=== PATIENT | male | born 1935 | race Caucasian/White ===

== ENCOUNTER → 2016-09-15 | Outpatient (CLI) | payer MEDICARE ==
[2016-09-15 10:26] LABS: AUTOMATED NEUTROPHIL # 5.2 TH/MM3 (1.8-7.7); BASOPHIL % 0.2 % (0.0-2.0); EOSINOPHIL # 0.1 TH/MM3 (0-0.4); EOSINOPHIL % 2.1 % (0.0-4.0); HEMATOCRIT 39.7 % (39.0-51.0); HEMO FLAGS DIFF FINAL; LYMPHOCYTE # 0.9 TH/MM3 (1.0-4.8); MEAN CELL VOLUME 82.5 FL (80.0-100.0); MEAN CORPUSCULAR HEMOGLOBIN 25.6 PG (27.0-34.0); MONO % 8.5 % (0.0-8.0); NEUT % 76.2 % (16.0-70.0); PLATELET COUNT 171 TH/MM3 (150-450); RED BLOOD COUNT 4.81 MIL/MM3 (4.50-5.90); RED CELL DISTRIBUTION WIDTH 16.1 % (11.6-17.2); WHITE BLOOD COUNT 6.8 TH/MM3 (4.0-11.0)
[2016-09-15 12:28] LABS: BLOOD, URINE NEG (NEG); COMMENT (UR) CULT NOT INDICATED; CULTURE IF INDICATED CULT NOT INDICATED; GLUCOSE,URINE NEG (NEG); KETONE, URINE NEG (NEG); MUCUS URINE FEW /lpf (OCC); NITRITE,URINE NEG (NEG); SQUAMOUS EPITHELIAL CELL URINE <1 /hpf (0-5); URINE COLOR YELLOW (YELLW/STRAW)
[2016-09-15 12:56] LABS: ALKALINE PHOSPHATASE 92 U/L (45-117); ALT (GPT) 24 U/L (12-78); ANION GAP 7 MEQ/L (5-15); AST (GOT) 26 U/L (15-37); BICARBONATE 28.2 MEQ/L (21.0-32.0); BLOOD UREA NITROGEN 16 MG/DL (7-18); CHLORIDE 104 MEQ/L (98-107); CREATINE KINASE 215 U/L (39-308); GLOMERULAR FILTRATION RATE 60 ML/MIN (>89); HDL CHOLESTEROL 45.7 MG/DL (40.0-60.0); LDL CHOLESTEROL 81 MG/DL (0-99); POTASSIUM 3.9 MEQ/L (3.5-5.1); SODIUM (NA) 139 MEQ/L (136-145); TOTAL BILIRUBIN ADULT 0.6 MG/DL (0.2-1.0); URIC ACID 6.3 MG/DL (2.6-7.2)
[2016-09-15 16:23] LABS: HEMOGLOBIN A1a 1.2 %; HEMOGLOBIN A1b 0.9 %; HEMOGLOBIN Ao 84.6 %; HEMOGLOBIN LA1C 1.9 %; HEMOGLOBIN P3 3.8 %
== END ==
LOC: OLAB 09:25
PROVIDERS: ATTEND Internal Medicine
DX: E78.5 Hyperlipidemia, unspecified (principal); I10 Essential (primary) hypertension; E03.9 Hypothyroidism, unspecified; I50.9 Heart failure, unspecified; M10.9 Gout, unspecified; Z79.899 Other long term (current) drug therapy; Z12.11 Encounter for screening for malignant neoplasm of colon
CPT/HCPCS: 36415; 80053; 80061; 81001; 82550; 83036; 84443; 84550; 85025

== ENCOUNTER → 2016-09-21 | Outpatient (CLI) | payer MEDICARE | LOC: OLAB 10:51 | PROVIDERS: ATTEND Internal Medicine | DX: E78.5 Hyperlipidemia, unspecified (principal); I10 Essential (primary) hypertension; E03.9 Hypothyroidism, unspecified; I50.9 Heart failure, unspecified; M10.9 Gout, unspecified; Z79.899 Other long term (current) drug therapy; Z12.11 Encounter for screening for malignant neoplasm of colon | CPT/HCPCS: 82272 ==

== ENCOUNTER → 2016-10-12 | Outpatient (CLI) | payer MEDICARE ==
[2016-10-12 12:58] LABS: ANION GAP 10 MEQ/L (5-15); BICARBONATE 27.4 MEQ/L (21.0-32.0); BLOOD UREA NITROGEN 33 MG/DL (7-18); CHLORIDE 104 MEQ/L (98-107); GLOMERULAR FILTRATION RATE 40 ML/MIN (>89); GLUCOSE,FASTING 78 MG/DL (74-99); POTASSIUM 4.4 MEQ/L (3.5-5.1); SODIUM (NA) 141 MEQ/L (136-145)
[2016-10-12 13:10] LABS: FREE T4 1.54 NG/DL (0.76-1.46)
[2016-10-16 11:22] LABS: ALKALINE PHOSPHATASE 69 U/L (45-117); ALT (GPT) 31 U/L (12-78); AST (GOT) 41 U/L (15-37); TOTAL BILIRUBIN ADULT 0.8 MG/DL (0.2-1.0)
== END ==
LOC: OLAB 10:45
PROVIDERS: ATTEND Internal Medicine Cardiovascular Disease
DX: I48.91 Unspecified atrial fibrillation (principal); E03.9 Hypothyroidism, unspecified
CPT/HCPCS: 36415; 80048; 80053; 84439; 84443

== ENCOUNTER → 2016-10-16 | Outpatient (CLI) | payer MEDICARE ==
[2016-10-16 13:20] LABS: URINE TOTAL PROTEIN TIMED 30.6 MG/DL
== END ==
LOC: OLAB 10-14 07:42
PROVIDERS: ATTEND Internal Medicine
DX: I10 Essential (primary) hypertension (principal); Z79.899 Other long term (current) drug therapy
CPT/HCPCS: 84157

== ENCOUNTER → 2016-10-19 | Outpatient (CLI) | payer MEDICARE ==
[2016-10-19 13:06] LABS: BICARBONATE 29.2 MEQ/L (21.0-32.0); POTASSIUM 3.7 MEQ/L (3.5-5.1)
== END ==
LOC: OLAB 09:31
PROVIDERS: ATTEND Urology
DX: C61 Malignant neoplasm of prostate (principal); N17.9 Acute kidney failure, unspecified
CPT/HCPCS: 36415; 80048; 81001; 84153

== ENCOUNTER → 2016-11-17 | Outpatient (CLI) | payer MEDICARE | LOC: OLAB 09:11 | PROVIDERS: ATTEND Urology | DX: C61 Malignant neoplasm of prostate (principal) | CPT/HCPCS: 36415; 84153 ==

== ENCOUNTER → 2017-01-12 | Day surgery (SDC) | payer MEDICARE ==
[~2017-01-12] MED LIST: GENTAMICIN SULFATE 80 MG/2 ML VIAL ONE; IOHEXOL 180 MG/ML 20 ML VIAL (for RAD DIAG) ONE; LACTATED RINGER'S 1,000 ML BAG IV ONE; ONDANSETRON HCL 4 MG/2 ML VIAL IV PUSH ONE; PROPOFOL 200 MG/20 ML AMP IV ONE; SODIUM CHLORIDE 0.9% INJ 10 ML ONE; SODIUM CHLORIDE 0.9% SOLN 100 ML (PAB) BAG IV ONE
--- NOTE | 2017-01-12 16:30 | TN ---
cc: JESÚS KUMAR M.D. DATE OF SURGERY 01/12/2017 PREOPERATIVE DIAGNOSIS Left ureteral obstruction (ICD - 10 code Q62.39). POSTOPERATIVE DIAGNOSIS Left ureteral obstruction (ICD - 10 code Q62.39). PROCEDURE 1. Cystourethroscopy with left ureteroscopy (CPT code 05039). 2. Cystourethroscopy with left retrograde pyelogram and left ureteral stent placement (6-Norwegian x 24 cm) (CPT code 55420). INDICATION Mr. Seymour is an 81-year-old gentleman with castrate resistant widely metastatic prostate cancer who recently, as part of a metastatic survey was found to have an obstructing left ureter with no obvious lesion or stone, presents now for further evaluation and stent placement. FINDINGS Normal urethra. The prostatic urethra is absent. Bladder neck is within normal limits and postsurgical. The ureteral orifice on the left is slit-like, normal size, shape and position. No evidence of any efflux of urine. On the right the ureteral orifice appears to be within a Hutch diverticulum. There is moderate trabeculation especially in the dome of the bladder with some small diverticula additionally. No carmine tumors, calcifications or suspicious mucosa identified. The retrograde pyelogram shows evidence of pelvocaliectasis in a dilated ureter and tortuosity down to the pelvis where it tapers abruptly into a very narrow distal ureter. Ureteroscopy can only be performed in the distal ureter at the junction of the mid ureter there is extrinsic compression and inability to pass the scope further. PROCEDURE Procedure as well as risks and benefits were explained to the patient. Informed consent was obtained. The patient was taken to the major operative theater and placed supine position. The patient was identified as well as the operative site. [place] time-out was performed in standard fashion. At this time general anesthetic and prophylactic intravenous antibiotics consisting of gentamicin 80 mg was administered. After adequate anesthetic the patient was placed in the low dorsolithotomy position, prepped and draped in the usual sterile fashion. At this time a 22.5 Norwegian cystoscope with a 30 lens was inserted in the urethra and bladder with the above findings. Attention was directed to the left ureteral orifice where an 8-Norwegian cone-tipped catheter was inserted in the working end of the scope and the ureteral meatus was cannulated. Under fluoroscopic guidance dilute radiopaque contrast was injected with some difficulty opacifying parts of the collecting system and the cone-tip catheter was exchanged for an open-ended catheter which was then placed at the level of the obstruction. Then essentially the catheter was advanced all the way up into the renal pelvis and pullback retrograde pyelogram was performed with the above findings. At this time a 0.035 inch hybrid wire was placed through the working end of the scope up the ureter under fluoroscopic and able to easily traverse the torturous ureter and into the renal pelvis and over this a 6-Norwegian x 24 cm double-J ureteral stent was placed with the help of a pusher. When the proximal end could be seen under fluoroscopic guidance in the renal pelvis, the pusher and guidewire were removed. There was a nice curl within the renal pelvis and a nice curl in the bladder under direct vision. The bladder was then decompressed, the cystoscope removed. The patient tolerated procedure well, emerged from anesthetic without difficulty and transferred to the recovery in stable condition to be discharged home when criteria is met. It appears the patient has metastatic prostate cancer is causing some lymphadenopathy and extrinsic compression on that portion of the left mid and distal ureter. MD MARYELLEN Brewer/CARLYLE /3:35 PM /4:04 PM
== END | disposition home or self-care (01) ==
LOC: ESDC 12:03
PROVIDERS: ATTEND Urology
DX: Q62.39 Other obstructive defects of renal pelvis and ureter (principal)
CPT/HCPCS: 00910; 52332; 52351; 76000; C1769; J1580; J2405; J3010; J7120; Q9965

== ENCOUNTER → 2017-01-18 | Outpatient (CLI) | payer MEDICARE ==
[2017-01-18 12:41] LABS: ANION GAP 6 MEQ/L (5-15); AST (GOT) 26 U/L (15-37); BICARBONATE 29.8 MEQ/L (21.0-32.0); BLOOD UREA NITROGEN 23 MG/DL (7-18); CHLORIDE 99 MEQ/L (98-107); GLOMERULAR FILTRATION RATE 37 ML/MIN (>89); GLUCOSE,FASTING 75 MG/DL (74-99); POTASSIUM 4.2 MEQ/L (3.5-5.1); SODIUM (NA) 135 MEQ/L (136-145)
[2017-01-18 12:51] LABS: ALKALINE PHOSPHATASE 159 U/L (45-117); ALT (GPT) 23 U/L (12-78); FREE T4 1.49 NG/DL (0.76-1.46); HDL CHOLESTEROL 51.9 MG/DL (40.0-60.0); LDL CHOLESTEROL 79 MG/DL (0-99); TOTAL BILIRUBIN ADULT 0.7 MG/DL (0.2-1.0)
[2017-01-18 13:27] LABS: BACTERIA, URINE RARE /hpf; BLOOD, URINE LARGE (NEG); GLUCOSE,URINE NEG (NEG); KETONE, URINE NEG (NEG); MUCUS URINE FEW /lpf (OCC); NITRITE,URINE NEG (NEG); PH, URINE 6.5 (5.0-8.5); SQUAMOUS EPITHELIAL CELL URINE <1 /hpf (0-5); URINE COLOR YELLOW (YELLW/STRAW)
== END ==
LOC: OLAB 07:53
PROVIDERS: ATTEND Internal Medicine
DX: E03.9 Hypothyroidism, unspecified (principal); E78.5 Hyperlipidemia, unspecified; Z79.899 Other long term (current) drug therapy
CPT/HCPCS: 36415; 80053; 80061; 81001; 84439; 84443

== ENCOUNTER → 2017-04-06 | Day surgery (SDC) | payer MEDICARE ==
[~2017-04-06] MED LIST changes: -IOHEXOL 180 MG/ML 20 ML VIAL (for RAD DIAG) ONE; -LACTATED RINGER'S 1,000 ML BAG IV ONE; +LACTATED RINGER'S 1000 ML INJ 1,000 ML ONE; -SODIUM CHLORIDE 0.9% INJ 10 ML ONE; +SODIUM CHLORIDE 0.9% INJ 100 ML IV ONE; -SODIUM CHLORIDE 0.9% SOLN 100 ML (PAB) BAG IV ONE
--- NOTE | 2017-04-06 17:07 | TN ---
cc: JESÚS KUMAR M.D. DATE OF SURGERY 04/06/2017 PREOPERATIVE DIAGNOSES 1. Left ureteral obstruction (ICD - 10 code Q62.39). 2. Metastatic prostate cancer (ICD - 10 code C61). POSTOPERATIVE DIAGNOSES 1. Left ureteral obstruction (ICD - 10 code Q62.39). 2. Metastatic prostate cancer (ICD - 10 code C61). PROCEDURE 1. Cystourethroscopy with left ureteroscopy (CPT code 73887) 2. Cystourethroscopy with left ureteral stent placement (6-Polish x 22 cm) (CPT code 94442) INDICATION Mr. Seymour is an 81-year-old gentleman with castrate resistant widely metastatic prostate cancer who previously was found to have obstruction of his left ureter, presumably due to the cancer and presents now for stent exchange and possible ureteroscopy. FINDINGS Normal urethra. The prostatic urethra is absent. The bladder neck is within normal limits and postsurgical. Ureteral orifice is normal size, shape and position effluxing clear urine on the right. On the left there is a distal end of a double-J ureteral stent emerging. On the right the ureteral orifice appears to be within a hutch diverticulum. There is some moderate trabeculation especially in the dome of the bladder with some small diverticuli additionally. No carmine tumors, abnormal mucosa or calcifications identified. The left ureter appears to be patent to the level of the mid ureter and then abruptly tapers down and extrinsically compressed, unable to place the scope further. PROCEDURE IN DETAIL Procedure as well as risks and benefits were explained to the patient and informed consent was obtained. The patient was taken to the major operative theater where he was placed in supine position. The patient was identified as well as the operative site. A universal time-out was performed in standard fashion. At this time general anesthetic and prophylactic intravenous antibiotics consisting of gentamicin 80 mg was administered. After adequate anesthetic he was placed in low dorsolithotomy position, prepped, draped usual sterile fashion. At this time a 22.5 Polish cystoscope with a 30 degrees lens was inserted into the urethra and bladder with the above findings. Attention was directed to the left ureteral orifice where the distal end of the double-J ureteral stent could be seen emerging from the ureteral orifice. Using a grasping forceps through the working end of the scope the distal end was grasped and pulled out through the urethra. At this time a 0.035 inches Ibrahim guidewire was then threaded through the opening and under fluoroscopic guidance it was threaded up the ureter and into the renal pelvis. The stent was removed leaving the guidewire in place. The guidewire was then attached to the drapes as a safety wire. At this time a semi rigid mini ureteroscope was then placed under direct vision alongside the wire up to the level of the mid ureter and could not pass any longer. There was no obvious of any masses just extrinsic compression of the ureter itself presumably from the cancer of the prostate. At this time the ureteroscope was removed and the guidewire was back loaded onto the 22.5 Polish cystoscope. Through the working end of the scope and over the guidewire a 6-Polish x 22-cm [place] inlay was placed with the help of a pusher. When the proximal end could be seen under fluoroscopic guidance in the renal pelvis, the pusher and guidewire were removed. There was a nice curl under fluoroscopic guidance on the proximal end and under direct vision in the bladder of the distal end. The bladder was decompressed, the cystoscope removed. The patient tolerated the procedure well, emerged from anesthetic without difficulty and transferred to the recovery in stable condition to be discharged home when criteria is met. There were no obvious complications. The patient will maintain the stent indefinitely. MD MARYELLEN Brewer/CARLYLE /4:37 PM /4:46 PM
== END | disposition home or self-care (01) ==
LOC: ESDC 11:40
PROVIDERS: ATTEND Urology
DX: Q62.39 Other obstructive defects of renal pelvis and ureter (principal); C61 Malignant neoplasm of prostate
CPT/HCPCS: 00910; 52332; 52351; 76000; J1580; J2405; J3010; J7120

== ENCOUNTER → 2017-04-20 | Outpatient (CLI) | payer MEDICARE ==
[2017-04-20 12:52] LABS: ANION GAP 4 MEQ/L (5-15); AST (GOT) 24 U/L (15-37); BICARBONATE 27.6 MEQ/L (21.0-32.0); BLOOD UREA NITROGEN 22 MG/DL (7-18); CHLORIDE 101 MEQ/L (98-107); GLOMERULAR FILTRATION RATE 42 ML/MIN (>89); GLUCOSE,FASTING 86 MG/DL (74-99); POTASSIUM 4.2 MEQ/L (3.5-5.1); SODIUM (NA) 133 MEQ/L (136-145)
[2017-04-20 12:56] LABS: ALKALINE PHOSPHATASE 167 U/L (45-117); ALT (GPT) 19 U/L (12-78); LDL CHOLESTEROL 92 MG/DL (0-99); TOTAL BILIRUBIN ADULT 0.5 MG/DL (0.2-1.0)
== END ==
LOC: OLAB 09:22
PROVIDERS: ATTEND Internal Medicine
DX: E78.5 Hyperlipidemia, unspecified (principal); Z79.899 Other long term (current) drug therapy
CPT/HCPCS: 36415; 80053; 80061; 82248

== ENCOUNTER → 2017-05-14 | Outpatient (CLI) | payer MEDICARE ==
[2017-05-14 11:04] LABS: INTERNATIONAL NORMALIZED RATIO 7.6 RATIO
== END ==
LOC: CLAB 09:46
PROVIDERS: ATTEND Internal Medicine Cardiovascular Disease
DX: I48.91 Unspecified atrial fibrillation (principal)
CPT/HCPCS: 36415; 85610

== ENCOUNTER → 2017-06-09 | Outpatient (CLI) | payer MEDICARE ==
[2017-06-09 11:54] LABS: BICARBONATE 24.6 MEQ/L (21.0-32.0); POTASSIUM 4.3 MEQ/L (3.5-5.1)
== END ==
LOC: OLAB 08:13
PROVIDERS: ATTEND Internal Medicine
DX: Z79.899 Other long term (current) drug therapy (principal)
CPT/HCPCS: 36415; 80048